=== PATIENT | female | born 1965 | race African-American/Black ===

== ENCOUNTER → 2017-01-15 | Outpatient (CLI) | payer MEDICARE, MEDICAID ==
[~2017-01-15] MED LIST: AMLO5TAB4; ATOR20TA PO; CHOL100053 PO; CLOP75TA16 PO; DEXL60CA3 PO; FOLI1TAB63 PO; MYCO180T PO; PRED5ORA PO; PROG1 PO; PROGRAFT; PROT40 PO; VALS40TA4; ZOLP5TAB2 PO
== END | disposition home or self-care (01) ==
LOC: MAMMO 07:27
PROVIDERS: ATTEND Internal Medicine Nephrology
DX: Z53.21 Procedure and treatment not carried out due to patient leaving prior to being seen by health care provider (principal)

== ENCOUNTER → 2017-01-24 | Outpatient (CLI) | payer MEDICARE, MEDICAID | END | disposition home or self-care (01) | LOC: MAMMO 07:30 | PROVIDERS: ATTEND Internal Medicine Nephrology | DX: Z12.31 Encounter for screening mammogram for malignant neoplasm of breast (principal) | CPT/HCPCS: G0202 ==

== ENCOUNTER → 2017-06-10 | Outpatient (CLI) | payer MEDICARE, MEDICAID | END | disposition home or self-care (01) | LOC: RAD 10:57 | PROVIDERS: ATTEND Internal Medicine Nephrology | DX: Z01.818 Encounter for other preprocedural examination (principal); J98.11 Atelectasis; R60.1 Generalized edema | CPT/HCPCS: 71045; 93970 ==

== ENCOUNTER 2017-09-08 11:52 | Inpatient (IN) | payer MEDICARE, MEDICAID ==
[~2017-09-08] VITALS: Ht 162.6 cm; Wt 63.5 kg
[2017-09-08 15:29] VITALS: BP 143/62
[2017-09-08 16:00] VITALS: BP 143/62
[2017-09-08] MEDS ORDERED: SODIUM CHLORIDE 0.9% 1,000 ML IV SCH (16:30)
[2017-09-08] MEDS ORDERED: LORAZEPAM 2MG/ML CPJ IV PRN (18:00)
[2017-09-08] MEDS ORDERED: CLONIDINE 0.1MG TABLET PO PRN (18:00)
[2017-09-08] MEDS ORDERED: ACETAMINOPHEN 325MG TABLET PO PRN (18:00)
[2017-09-08 18:54] LABS: HEMATOCRIT. 45.7 % (36.0-48.0); HEMOGLOBIN. 14.7 g/dL (12.0-16.0); MEAN CORPUSCULAR HEMOGLOBIN 28.3 pg (28.0-32.0); MEAN CORPUSCULAR VOLUME 87.9 fL (81.0-99.0); MEAN PLATELET VOLUME 8.4 fl (7.4-10.4); PLATELET 180 x1000/uL (130-400); RED CELL DISTRIBUTION WIDTH 16.2 % (11.6-14.6)
[2017-09-08 19:00] LABS: CHLORIDE 107 mEq/L (98-107)
[2017-09-08] MEDS: ONDANSETRON HCL 4MG/2ML VIAL IV PRN (19:02)
[2017-09-08 19:42] LABS: PLATELET ESTIMATE NORMAL
[2017-09-08 20:00] VITALS: BP 132/76
[2017-09-08] MEDS ORDERED: HYDROMORPHONE HCL/PF 2MG/ML CPJ IV PRN (20:00)
[2017-09-08] MEDS: ENOXAPARIN 40MG/0.4ML SYR SUBCUT SCH (22:29)
[2017-09-08] MEDS: SODIUM CHLORIDE 0.9% 1,000 ML IV SCH (22:36)
[2017-09-08] MEDS: TACROLIMUS 1MG CAPSULE PO SCH (22:44)
[2017-09-08] MEDS: MYCOPHENOLATE SODIUM 180 MG TABLET.DR PO SCH (23:25)
[2017-09-09] VITALS: BP 142/63
[2017-09-09] MEDS: METRONIDAZOLE 500 MG PREMIX 100 ML IV SCH ×3 (02:50→17:34)
[2017-09-09] MEDS: LEVOFLOXACIN 500MG PREMIX 100 ML IV SCH (03:17)
[2017-09-09 04:00] VITALS: BP 136/60
[2017-09-09] MEDS: ONDANSETRON HCL 4MG/2ML VIAL IV PRN (06:10)
[2017-09-09] MEDS: PANTOPRAZOLE 40MG DR TABLET PO SCH (07:20)
[2017-09-09 08:00] VITALS: BP 128/63
[2017-09-09] MEDS ORDERED: ENOXAPARIN 40MG/0.4ML SYR SUBCUT SCH (09:00)
[2017-09-09] MEDS ORDERED: PREDNISONE 5 MG PO SCH (09:00)
[2017-09-09] MEDS ORDERED: MYCOPHENOLATE SODIUM 180 MG TABLET.DR PO SCH (09:00)
[2017-09-09] MEDS: CLOPIDOGREL 75MG TABLET PO SCH (09:00)
[2017-09-09] MEDS ORDERED: AMLODIPINE 5MG TABLET PO SCH (09:00)
[2017-09-09] MEDS ORDERED: MEDICATION NOT ON FORMULARY EA (Dexlansoprazole (Dexilant) 1 CAP) PO SCH (09:00)
[2017-09-09] MEDS: PREDNISONE 5MG TABLET PO SCH (09:00)
[2017-09-09] MEDS: TACROLIMUS 1MG CAPSULE PO SCH ×2 (09:05→21:44)
[2017-09-09] MEDS: MYCOPHENOLATE SODIUM 180 MG TABLET.DR PO SCH ×2 (09:05→21:44)
[2017-09-09] MEDS: SODIUM CHLORIDE 0.9% 1,000 ML IV SCH ×2 (09:12→23:05)
[2017-09-09 09:34] LABS: KETONES URINE NEGATIVE (NEGATIVE); LEUKOCYTE ESTERASE URINE 1+ (NEGATIVE); NITRITE URINE NEGATIVE (NEGATIVE); OCCULT BLOOD URINE TRACE (NEGATIVE); PH URINE 5.5 (4.5-8.0); PROTEIN URINE 2+ (NEGATIVE); SPECIFIC GRAVITY URINE 1.039 (1.005-1.030); UROBILINOGEN URINE 0.2 E.U./dL (0.2-1.0)
[2017-09-09 09:40] LABS: COLOR URINE YELLOW (YELLOW)
[2017-09-09 09:41] LABS: CLARITY URINE HAZY (CLEAR)
[2017-09-09 12:00] VITALS: BP 130/69
[2017-09-09 16:15] VITALS: BP 124/45
[2017-09-09 20:00] VITALS: BP 125/67
[2017-09-09] MEDS: ATORVASTATIN CALCIUM 20MG TABLET PO SCH (21:43)
[2017-09-09] MEDS: ZOLPIDEM TARTRATE 5MG TABLET PO SCH (21:44)
[2017-09-09] MEDS: ENOXAPARIN 40MG/0.4ML SYR SUBCUT SCH (21:53)
[2017-09-10] VITALS: BP 122/43
[2017-09-10] MEDS: METRONIDAZOLE 500 MG PREMIX 100 ML IV SCH ×3 (03:32→17:58)
[2017-09-10] MEDS: LEVOFLOXACIN 500MG PREMIX 100 ML IV SCH (03:33)
[2017-09-10 04:00] VITALS: BP 144/66
[2017-09-10] MEDS: PANTOPRAZOLE 40MG DR TABLET PO SCH (07:24)
[2017-09-10 08:00] VITALS: BP 129/52
[2017-09-10 08:11] LABS: CHLORIDE 110 mEq/L (98-107)
[2017-09-10 08:19] LABS: BASOPHILS % 0.1 % (0.0-2.0); EOSINOPHILS % 0.2 % (0.0-5.0); HEMATOCRIT. 40.3 % (36.0-48.0); HEMOGLOBIN. 13.3 g/dL (12.0-16.0); LYMPHOCYTES % 9.4 % (20.0-50.0); MEAN CORPUSCULAR HEMOGLOBIN 28.8 pg (28.0-32.0); MEAN CORPUSCULAR VOLUME 87.4 fL (81.0-99.0); MEAN PLATELET VOLUME 8.7 fl (7.4-10.4); MONOCYTES % 13.6 % (2.0-8.0); NEUTROPHILS % 76.7 % (40.0-76.0); PLATELET 166 x1000/uL (130-400); RED BLOOD CELL COUNT 4.61 mill/uL (4.2-5.4); RED CELL DISTRIBUTION WIDTH 16.3 % (11.6-14.6)
[2017-09-10 08:24] LABS: PHOSPHORUS 3.5 mg/dL (2.5-4.9)
[2017-09-10] MEDS: PREDNISONE 5MG TABLET PO SCH (08:44)
[2017-09-10] MEDS: CLOPIDOGREL 75MG TABLET PO SCH (08:45)
[2017-09-10] MEDS: TACROLIMUS 1MG CAPSULE PO SCH ×2 (08:45→17:58)
[2017-09-10] MEDS: MYCOPHENOLATE SODIUM 180 MG TABLET.DR PO SCH ×2 (08:46→17:58)
[2017-09-10] MEDS ORDERED: CHOLECALCIFEROL (D3) 1000 UNIT TABLET PO SCH (09:00)
[2017-09-10] MEDS: POTASSIUM CHLORIDE 20MEQ TABLET SR PO SCH (09:45)
[2017-09-10 12:00] VITALS: BP 145/54
[2017-09-10] MEDS: ONDANSETRON HCL 4MG/2ML VIAL IV PRN ×2 (12:54→18:06)
[2017-09-10] MEDS: CEFEPIME 1,000 MG in DEXTROSE 5% WATER 50 ML IV SCH ×2 (12:54→22:39)
[2017-09-10] MEDS: SODIUM CHLORIDE 0.9% 1,000 ML IV SCH (12:56)
[2017-09-10 16:00] VITALS: BP 147/58
[2017-09-10 20:00] VITALS: BP 99/58
[2017-09-10] MEDS: ENOXAPARIN 40MG/0.4ML SYR SUBCUT SCH (21:28)
[2017-09-10] MEDS: ATORVASTATIN CALCIUM 20MG TABLET PO SCH (21:28)
[2017-09-10] MEDS: ZOLPIDEM TARTRATE 5MG TABLET PO SCH (21:28)
[2017-09-10] MEDS ORDERED: CHOLECALCIFEROL 10000 UNIT PO SCH (22:30)
[2017-09-11] VITALS: BP 115/58
[2017-09-11] MEDS: LOPERAMIDE HCL 2MG CAPSULE PO PRN ×2 (00:35→11:41)
[2017-09-11] MEDS: DIPHENOXYLATE/ATROPINE 2.5/0.025MG TABLET PO PRN ×3 (01:21→21:38)
[2017-09-11] MEDS: ONDANSETRON HCL 4MG/2ML VIAL IV PRN ×3 (01:21→21:02)
[2017-09-11] MEDS: METRONIDAZOLE 500 MG PREMIX 100 ML IV SCH ×3 (01:29→18:49)
[2017-09-11] MEDS ORDERED: MAGNESIUM 2 G PREMIX 50 ML IV NR (02:00)
[2017-09-11 04:00] VITALS: BP 117/53
[2017-09-11 06:28] LABS: BASOPHILS % 0.2 % (0.0-2.0); EOSINOPHILS % 0.3 % (0.0-5.0); HEMATOCRIT. 39.7 % (36.0-48.0); HEMOGLOBIN. 13.1 g/dL (12.0-16.0); LYMPHOCYTES % 13.7 % (20.0-50.0); MEAN CORPUSCULAR HEMOGLOBIN 28.7 pg (28.0-32.0); MEAN CORPUSCULAR VOLUME 87.1 fL (81.0-99.0); MEAN PLATELET VOLUME 8.6 fl (7.4-10.4); MONOCYTES % 11.2 % (2.0-8.0); NEUTROPHILS % 74.6 % (40.0-76.0); PLATELET 170 x1000/uL (130-400); RED BLOOD CELL COUNT 4.56 mill/uL (4.2-5.4); RED CELL DISTRIBUTION WIDTH 15.8 % (11.6-14.6)
[2017-09-11 06:39] LABS: CHLORIDE 113 mEq/L (98-107)
[2017-09-11 06:45] LABS: PHOSPHORUS 3.1 mg/dL (2.5-4.9)
[2017-09-11] MEDS: MYCOPHENOLATE SODIUM 180 MG TABLET.DR PO SCH ×2 (06:48→18:49)
[2017-09-11] MEDS: TACROLIMUS 1MG CAPSULE PO SCH ×2 (06:48→18:49)
[2017-09-11 07:16] VITALS: BP 119/41
[2017-09-11] MEDS: CLOPIDOGREL 75MG TABLET PO SCH (08:49)
[2017-09-11] MEDS: CEFEPIME 1,000 MG in DEXTROSE 5% WATER 50 ML IV SCH ×2 (08:49→21:50)
[2017-09-11] MEDS: PREDNISONE 20MG TABLET PO SCH (08:50)
[2017-09-11] MEDS: PANTOPRAZOLE 40MG DR TABLET PO SCH (08:50)
[2017-09-11] MEDS: POTASSIUM CHLORIDE 20MEQ TABLET SR PO SCH (08:50)
[2017-09-11] MEDS: SODIUM CHLORIDE 0.9% 1,000 ML IV SCH (10:45)
[2017-09-11 12:00] VITALS: BP 151/73
[2017-09-11] MEDS ORDERED: METOCLOPRAMIDE HCL 10MG TABLET PO SCH (14:00)
[2017-09-11 16:00] VITALS: BP 138/53
[2017-09-11 20:00] VITALS: BP 164/79
[2017-09-11] MEDS: ATORVASTATIN CALCIUM 20MG TABLET PO SCH (21:38)
[2017-09-11] MEDS: LOPERAMIDE HCL 2MG CAPSULE PO SCH (21:38)
[2017-09-11] MEDS: ZOLPIDEM TARTRATE 5MG TABLET PO SCH (21:38)
[2017-09-11] MEDS: ENOXAPARIN 40MG/0.4ML SYR SUBCUT SCH (21:39)
[2017-09-12] VITALS: BP 113/53
[2017-09-12] MEDS: ONDANSETRON HCL 4MG/2ML VIAL IV PRN ×2 (03:18→09:52)
[2017-09-12] MEDS: METRONIDAZOLE 500 MG PREMIX 100 ML IV SCH ×3 (03:25→17:31)
[2017-09-12] MEDS: DIPHENOXYLATE/ATROPINE 2.5/0.025MG TABLET PO PRN (03:25)
[2017-09-12 04:00] VITALS: BP 146/66
[2017-09-12] MEDS: TACROLIMUS 1MG CAPSULE PO SCH ×2 (06:01→17:31)
[2017-09-12] MEDS: MYCOPHENOLATE SODIUM 180 MG TABLET.DR PO SCH ×2 (06:02→17:30)
[2017-09-12] MEDS ORDERED: SODIUM CHLORIDE 0.9% 100 ML IV ONE (07:45)
[2017-09-12 08:00] VITALS: BP 142/67
[2017-09-12] MEDS: PREDNISONE 20MG TABLET PO SCH (09:36)
[2017-09-12] MEDS: PANTOPRAZOLE 40MG DR TABLET PO SCH (09:36)
[2017-09-12] MEDS: CLOPIDOGREL 75MG TABLET PO SCH (09:36)
[2017-09-12] MEDS: LOPERAMIDE HCL 2MG CAPSULE PO SCH ×3 (09:36→17:40)
[2017-09-12] MEDS: POTASSIUM CHLORIDE 20MEQ TABLET SR PO SCH (09:36)
[2017-09-12] MEDS: CEFEPIME 1,000 MG in DEXTROSE 5% WATER 50 ML IV SCH ×2 (09:37→20:32)
[2017-09-12] MEDS: SODIUM CHLORIDE 0.9% 1,000 ML IV SCH (09:38)
[2017-09-12 12:00] VITALS: BP 130/60
[2017-09-12 16:00] VITALS: BP 131/70
[2017-09-12] MEDS: ATORVASTATIN CALCIUM 20MG TABLET PO SCH (20:33)
[2017-09-12] MEDS: ZOLPIDEM TARTRATE 5MG TABLET PO SCH (20:33)
[2017-09-12] MEDS: ENOXAPARIN 40MG/0.4ML SYR SUBCUT SCH (20:33)
[2017-09-12 20:50] VITALS: BP 119/56
[2017-09-13] VITALS: BP 140/52
[2017-09-13] MEDS: LOPERAMIDE HCL 2MG CAPSULE PO SCH ×3 (00:03→12:19)
[2017-09-13] MEDS: METRONIDAZOLE 500 MG PREMIX 100 ML IV SCH ×2 (01:37→10:20)
[2017-09-13 04:00] VITALS: BP 152/63
[2017-09-13] MEDS: MYCOPHENOLATE SODIUM 180 MG TABLET.DR PO SCH (06:37)
[2017-09-13] MEDS: TACROLIMUS 1MG CAPSULE PO SCH (06:37)
[2017-09-13 07:07] LABS: CHLORIDE 112 mEq/L (98-107)
[2017-09-13 07:10] LABS: BASOPHILS % 0.3 % (0.0-2.0); EOSINOPHILS % 0.3 % (0.0-5.0); HEMATOCRIT. 37.5 % (36.0-48.0); HEMOGLOBIN. 12.5 g/dL (12.0-16.0); LYMPHOCYTES % 15.3 % (20.0-50.0); MEAN CORPUSCULAR HEMOGLOBIN 28.6 pg (28.0-32.0); MEAN CORPUSCULAR VOLUME 86.1 fL (81.0-99.0); MEAN PLATELET VOLUME 8.3 fl (7.4-10.4); MONOCYTES % 8.5 % (2.0-8.0); NEUTROPHILS % 75.6 % (40.0-76.0); PLATELET 168 x1000/uL (130-400); RED BLOOD CELL COUNT 4.36 mill/uL (4.2-5.4); RED CELL DISTRIBUTION WIDTH 15.8 % (11.6-14.6)
[2017-09-13 08:00] VITALS: BP 152/67
[2017-09-13] MEDS: POTASSIUM CHLORIDE 20MEQ TABLET SR PO SCH (09:00)
[2017-09-13] MEDS: CEFEPIME 1,000 MG in DEXTROSE 5% WATER 50 ML IV SCH (09:10)
[2017-09-13] MEDS: PREDNISONE 20MG TABLET PO SCH (09:11)
[2017-09-13] MEDS: CLOPIDOGREL 75MG TABLET PO SCH (09:11)
[2017-09-13] MEDS: PANTOPRAZOLE 40MG DR TABLET PO SCH (09:11)
[2017-09-13] MEDS: SODIUM CHLORIDE 0.9% 1,000 ML IV SCH ×2 (09:11→12:19)
[2017-09-13 12:00] VITALS: BP_SYST 127; BP_SYST 133; BP_DIAS 65; BP_DIAS 69
[2017-09-13] MEDS ORDERED: MAGNESIUM 2 G PREMIX 50 ML IV NR (12:30)
[2017-09-13 14:52] VITALS: BP 133/65
== END 2017-09-13 16:00 | disposition home or self-care (01) | DRG 871 ==
LOC: 6EST 11:52
PROVIDERS: ADMIT Internal Medicine Nephrology; ATTEND Internal Medicine Nephrology
DX: A41.9 Sepsis, unspecified organism (principal); N18.6 End stage renal disease; E43 Unspecified severe protein-calorie malnutrition; I12.0 Hypertensive chronic kidney disease with stage 5 chronic kidney disease or end stage renal disease; M32.9 Systemic lupus erythematosus, unspecified; E83.42 Hypomagnesemia; N39.0 Urinary tract infection, site not specified; Z94.0 Kidney transplant status; K52.9 Noninfective gastroenteritis and colitis, unspecified; E86.0 Dehydration; E78.00 Pure hypercholesterolemia, unspecified; E87.6 Hypokalemia; Z79.899 Other long term (current) drug therapy; Z86.711 Personal history of pulmonary embolism; Z90.710 Acquired absence of both cervix and uterus; Z88.0 Allergy status to penicillin; Z68.24 Body mass index [BMI] 24.0-24.9, adult
CPT/HCPCS: 36415; 74176; 80048; 80053; 80197; 81003; 82270; 83735; 84100; 84145; 85025; 86645; 87045; 87252; 87449; 87493; 87496; 89055; 93306; 97162; C1893; J0692; J1170; J1650; J1956; J2060; J2405; J3475; J3490; J7030; J7060; J7507; J7512; J7517; A4315

== ENCOUNTER 2017-11-28 07:57 | Emergency (ER) | payer MEDICARE, MEDICAID ==
[~2017-11-28] VITALS: Ht 162.6 cm; Wt 65.0 kg
[2017-11-28] MEDS ORDERED: ONDANSETRON 4MG ODT PO STA (10:30)
[2017-11-28 10:50] LABS: BASOPHILS % 0.2 % (0.0-2.0); EOSINOPHILS % 0.4 % (0.0-5.0); HEMATOCRIT. 40.9 % (36.0-48.0); HEMOGLOBIN. 13.4 g/dL (12.0-16.0); LYMPHOCYTES % 9.8 % (20.0-50.0); MEAN CORPUSCULAR HEMOGLOBIN 28.1 pg (28.0-32.0); MEAN CORPUSCULAR VOLUME 86.2 fL (81.0-99.0); MEAN PLATELET VOLUME 8.3 fl (7.4-10.4); MONOCYTES % 7.5 % (2.0-8.0); NEUTROPHILS % 82.1 % (40.0-76.0); PLATELET 160 x1000/uL (130-400); RED BLOOD CELL COUNT 4.75 mill/uL (4.2-5.4); RED CELL DISTRIBUTION WIDTH 16.1 % (11.6-14.6)
[2017-11-28 10:57] LABS: CHLORIDE 109 mEq/L (98-107)
[2017-11-28 14:30] VITALS: BP 144/55
== END 2017-11-28 14:38 | disposition home or self-care (01) ==
LOC: ER 08:54
DX: M25.512 Pain in left shoulder (principal); R20.2 Paresthesia of skin; R11.0 Nausea; F12.10 Cannabis abuse, uncomplicated; I10 Essential (primary) hypertension; Z88.0 Allergy status to penicillin; Z88.5 Allergy status to narcotic agent; Z79.899 Other long term (current) drug therapy; Z94.0 Kidney transplant status
CPT/HCPCS: 36415; 80048; 85025; 93005; 93880; 99285; Q0162

== ENCOUNTER → 2018-04-01 | Outpatient (CLI) | payer MEDICARE, MEDICAID | END | disposition home or self-care (01) | LOC: US 07:36 | PROVIDERS: ATTEND Internal Medicine Nephrology | DX: R10.2 Pelvic and perineal pain (principal); Z94.0 Kidney transplant status | CPT/HCPCS: 76856 ==

== ENCOUNTER → 2018-04-14 | Outpatient (CLI) | payer MEDICARE, MEDICAID ==
[~2018-04-14] MED LIST changes: +IOHEXOL-300 100 ML BOTTLE ONE
== END | disposition home or self-care (01) ==
LOC: CT 07:35
PROVIDERS: ATTEND Internal Medicine Nephrology
DX: K57.90 Diverticulosis of intestine, part unspecified, without perforation or abscess without bleeding (principal); M16.11 Unilateral primary osteoarthritis, right hip; M87.851 Other osteonecrosis, right femur; Z96.651 Presence of right artificial knee joint
CPT/HCPCS: 73552; 74178; Q9967

== ENCOUNTER → 2018-06-11 | Outpatient (CLI) | payer MEDICARE, MEDICAID ==
[~2018-06-11] MED LIST changes: -IOHEXOL-300 100 ML BOTTLE ONE
== END | disposition home or self-care (01) ==
LOC: RAD 10:17
PROVIDERS: ATTEND Orthopaedic Surgery
DX: M19.012 Primary osteoarthritis, left shoulder (principal)
CPT/HCPCS: 73030

== ENCOUNTER 2019-05-03 10:11 | Inpatient (IN) | payer MEDICARE, MEDICAID ==
[~2019-05-03] VITALS: Ht 165.1 cm; Wt 63.6 kg
[~2019-05-03 10:11] MED LIST changes: -AMLO5TAB4; +AMLO5TAB4 PO; -CLOP75TA16 PO; +CLOP75TA4 PO
[2019-05-03] MEDS ORDERED: ONDANSETRON 4MG ODT PO STA (15:18)
[2019-05-03 16:30] LABS: HEMATOCRIT. 43.7 % (36.0-48.0); HEMOGLOBIN. 14.2 g/dL (12.0-16.0); MEAN CORPUSCULAR HEMOGLOBIN 28.6 pg (28.0-32.0); MEAN CORPUSCULAR VOLUME 87.8 fL (81.0-99.0); MEAN PLATELET VOLUME 8.4 fl (7.4-10.4); PLATELET 153 x1000/uL (130-400); RED BLOOD CELL COUNT 4.97 mill/uL (4.2-5.4); RED CELL DISTRIBUTION WIDTH 15.4 % (11.6-14.6)
[2019-05-03 16:35] LABS: PROTHROMBIN TIME 10.3 sec (9.6-11.0)
[2019-05-03 16:36] LABS: CHLORIDE 108 mEq/L (98-107)
[2019-05-03 19:20] LABS: ATYPICAL LYMPHOCYTES 2; PLATELET ESTIMATE NORMAL
[2019-05-03] MEDS ORDERED: SODIUM CHLORIDE 0.9% 1,000 ML IV ONE (22:30)
[2019-05-04] MEDS ORDERED: CEFEPIME 1,000 MG in DEXTROSE 5% WATER 50 ML IV NR ×2
[2019-05-04] MEDS ORDERED: VANCOMYCIN 1 G PREMIX 200 ML IV NR
[2019-05-04] MEDS ORDERED: SODIUM CHLORIDE 0.9% 1000ML BAG (SEPSIS BOLUS) IV NR
[2019-05-04 04:07] VITALS: BP 143/68
[2019-05-04 04:30] VITALS: BP 143/68
[2019-05-04] MEDS ORDERED: ONDANSETRON HCL 4MG/2ML INJ IV PRN (05:15)
[2019-05-04] MEDS ORDERED: FISH MT (05:56)
[2019-05-04] MEDS ORDERED: FOLI1TAB63 MT (05:56)
[2019-05-04] MEDS: PANTOPRAZOLE 40MG DR TABLET PO SCH (06:20)
[2019-05-04 07:27] LABS: BASOPHILS % 0.3 % (0.0-2.0); EOSINOPHILS % 0.4 % (0.0-5.0); HEMATOCRIT. 40.7 % (36.0-48.0); HEMOGLOBIN. 13.3 g/dL (12.0-16.0); LYMPHOCYTES % 11.9 % (20.0-50.0); MEAN CORPUSCULAR HEMOGLOBIN 29.1 pg (28.0-32.0); MEAN CORPUSCULAR VOLUME 88.6 fL (81.0-99.0); MEAN PLATELET VOLUME 8.6 fl (7.4-10.4); MONOCYTES % 12.1 % (2.0-8.0); NEUTROPHILS % 75.3 % (40.0-76.0); PLATELET 144 x1000/uL (130-400); RED BLOOD CELL COUNT 4.59 mill/uL (4.2-5.4); RED CELL DISTRIBUTION WIDTH 15.3 % (11.6-14.6)
[2019-05-04 07:29] LABS: CHLORIDE 112 mEq/L (98-107)
[2019-05-04 08:00] VITALS: BP 123/61
[2019-05-04] MEDS ORDERED: TACROLIMUS 1MG CAPSULE PO SCH ×3 (09:00→21:20)
[2019-05-04] MEDS ORDERED: CEFEPIME 1,000 MG in DEXTROSE 5% WATER 50 ML IV SCH (09:00)
[2019-05-04] MEDS ORDERED: MYCOPHENOLATE SODIUM 180 MG TABLET.DR PO SCH (09:00)
[2019-05-04] MEDS: CLOPIDOGREL 75MG TABLET PO SCH (09:19)
[2019-05-04] MEDS: FOLIC ACID/VITAMIN B COMP W-C TABLET PO SCH (09:19)
[2019-05-04] MEDS: PREDNISONE 5MG TABLET PO SCH (09:19)
[2019-05-04] MEDS: VANCOMYCIN 750 MG PREMIX 150 ML IV SCH ×3 (09:19→22:36)
[2019-05-04] MEDS: AMLODIPINE 5MG TABLET PO SCH ×2 (09:19→21:28)
[2019-05-04] MEDS ORDERED: TACR1CAP MT (10:45)
[2019-05-04] MEDS: CEFEPIME 1,000 MG in DEXTROSE 5% WATER 50 ML IV SCH ×2 (11:18→23:58)
[2019-05-04] MEDS: ACETAMINOPHEN 325MG TABLET PO PRN (11:27)
[2019-05-04 12:00] VITALS: BP 142/78
[2019-05-04] MEDS: SODIUM CHLORIDE 0.9% 1,000 ML IV SCH (12:29)
[2019-05-04] MEDS: TACROLIMUS 1MG CAPSULE PO SCH (14:11)
[2019-05-04] MEDS: MYCOPHENOLATE SODIUM 180 MG TABLET.DR PO SCH ×2 (14:48→21:29)
[2019-05-04] MEDS ORDERED: IOHEXOL-300 100 ML BOTTLE ONE (14:51)
[2019-05-04 16:00] VITALS: BP 131/64
[2019-05-04 20:00] VITALS: BP 127/66
[2019-05-04] MEDS ORDERED: ATORVASTATIN CALCIUM 20MG TABLET PO SCH (21:00)
[2019-05-04] MEDS ORDERED: LACTULOSE 20G/30ML UDC PO NR (21:00)
[2019-05-05] VITALS: BP 151/76
[2019-05-05] MEDS: ACETAMINOPHEN 325MG TABLET PO PRN (00:46)
[2019-05-05] MEDS: SODIUM CHLORIDE 0.9% 1,000 ML IV SCH ×2 (00:47→12:19)
[2019-05-05 04:00] VITALS: BP 125/68
[2019-05-05 06:52] LABS: CHLORIDE 112 mEq/L (98-107)
[2019-05-05 07:01] LABS: VANCOMYCIN TROUGH 17.9 ug/mL (5.0-10.0)
[2019-05-05] MEDS: PANTOPRAZOLE 40MG DR TABLET PO SCH (07:11)
[2019-05-05 08:00] VITALS: BP 140/62
[2019-05-05] MEDS: VANCOMYCIN 750 MG PREMIX 150 ML IV SCH (08:14)
[2019-05-05] MEDS: DOCUSATE SODIUM 100MG CAPSULE PO SCH ×2 (09:22→17:00)
[2019-05-05] MEDS: TACROLIMUS 1MG CAPSULE PO SCH (09:22)
[2019-05-05] MEDS: PREDNISONE 5MG TABLET PO SCH (09:22)
[2019-05-05] MEDS: FOLIC ACID/VITAMIN B COMP W-C TABLET PO SCH (09:22)
[2019-05-05] MEDS: CLOPIDOGREL 75MG TABLET PO SCH (09:22)
[2019-05-05] MEDS: MYCOPHENOLATE SODIUM 180 MG TABLET.DR PO SCH (09:22)
[2019-05-05] MEDS: AMLODIPINE 5MG TABLET PO SCH (09:23)
[2019-05-05 12:00] VITALS: BP 151/68
[2019-05-05] MEDS: CEFEPIME 1,000 MG in DEXTROSE 5% WATER 50 ML IV SCH (12:19)
[2019-05-05] MEDS ORDERED: CIPR-263 MT (13:24)
[2019-05-05] MEDS ORDERED: METR500T MT (13:24)
[2019-05-05] MEDS ORDERED: VANCOMYCIN 1 G PREMIX 200 ML IV SCH (14:00)
[2019-05-05 15:45] VITALS: BP 145/64
[2019-05-05 16:40] VITALS: BP 136/64
== END 2019-05-05 17:30 | disposition home or self-care (01) | DRG 871 ==
LOC: ER 11:11 → 6WST 23:16 → EDBEDREQ 23:25 → EDBEDREQSVC 23:25 → EDBEDREQTM 23:25 → ENRESERV 05-04 03:17
PROVIDERS: ADMIT Specialist; ATTEND Specialist
DX: A41.9 Sepsis, unspecified organism (principal); N18.6 End stage renal disease; I13.11 Hypertensive heart and chronic kidney disease without heart failure, with stage 5 chronic kidney disease, or end stage renal disease; K57.32 Diverticulitis of large intestine without perforation or abscess without bleeding; Z94.0 Kidney transplant status; J44.9 Chronic obstructive pulmonary disease, unspecified; M32.9 Systemic lupus erythematosus, unspecified; A08.4 Viral intestinal infection, unspecified; Z79.02 Long term (current) use of antithrombotics/antiplatelets; Z79.899 Other long term (current) drug therapy; Z88.0 Allergy status to penicillin; Z88.6 Allergy status to analgesic agent
CPT/HCPCS: 36415; 71045; 74178; 80048; 80053; 80202; 83605; 85025; 87804; 99285; C1893; J0692; J3370; J7030; J7060; J7507; J7512; J7517; Q0162; Q9967

== ENCOUNTER → 2020-01-26 | Outpatient (CLI) | payer MEDICARE, MEDICAID ==
[~2020-01-26] MED LIST changes: +CIPR-263 MT; +FISH MT; +FOLI1TAB63 MT; +METR500T MT; +TACR1CAP MT
== END | disposition home or self-care (01) ==
LOC: CARD 10:46
PROVIDERS: ATTEND Internal Medicine Nephrology
DX: R07.9 Chest pain, unspecified (principal); I51.7 Cardiomegaly
CPT/HCPCS: 71045; 93005

== ENCOUNTER 2020-02-14 07:52 | Emergency (ER) | payer MEDICARE, MEDICAID ==
[~2020-02-14] VITALS: Ht 165.1 cm; Wt 64.0 kg
[2020-02-14 09:04] LABS: BASOPHILS % 0.3 % (0.0-2.0); HEMATOCRIT. 35.5 % (36.0-48.0); HEMOGLOBIN. 11.5 g/dL (12.0-16.0); LYMPHOCYTES % 12.8 % (20.0-50.0); MEAN CORPUSCULAR HEMOGLOBIN 28.3 pg (28.0-32.0); NEUTROPHILS % 76.9 % (40.0-76.0); PLATELET 234 x1000/uL (130-400); RED BLOOD CELL COUNT 4.07 mill/uL (4.2-5.4); RED CELL DISTRIBUTION WIDTH 15.9 % (11.6-14.6)
[2020-02-14 09:08] LABS: CHLORIDE 111 mEq/L (98-107)
[2020-02-14 09:14] LABS: PROTHROMBIN TIME 10.9 sec (9.6-11.0)
[2020-02-14 10:41] LABS: CLARITY URINE CLEAR (CLEAR); COLOR URINE YELLOW (YELLOW); KETONES URINE NEGATIVE (NEGATIVE); LEUKOCYTE ESTERASE URINE 1+ (NEGATIVE); NITRITE URINE NEGATIVE (NEGATIVE); OCCULT BLOOD URINE NEGATIVE (NEGATIVE); PROTEIN URINE TRACE (NEGATIVE); SPECIFIC GRAVITY URINE 1.022 (1.005-1.030); UROBILINOGEN URINE 0.2 E.U./dL (0.2-1.0)
[2020-02-14 11:34] VITALS: BP 141/60
== END 2020-02-14 11:43 | disposition home or self-care (01) ==
LOC: ER 07:52
DX: G89.18 Other acute postprocedural pain (principal); N39.0 Urinary tract infection, site not specified; M32.9 Systemic lupus erythematosus, unspecified; I12.9 Hypertensive chronic kidney disease with stage 1 through stage 4 chronic kidney disease, or unspecified chronic kidney disease; N18.9 Chronic kidney disease, unspecified; Z90.49 Acquired absence of other specified parts of digestive tract; Z94.0 Kidney transplant status; Z88.5 Allergy status to narcotic agent; Z88.0 Allergy status to penicillin
CPT/HCPCS: 36415; 74176; 80053; 81003; 85025; 93005; 99285

== ENCOUNTER → 2020-03-01 | Outpatient (CLI) | payer MEDICARE, MEDICAID ==
[2020-03-01 14:16] LABS: BASOPHILS % 0.4 % (0.0-2.0); EOSINOPHILS % 0.3 % (0.0-5.0); HEMATOCRIT. 38.7 % (36.0-48.0); HEMOGLOBIN. 12.5 g/dL (12.0-16.0); LYMPHOCYTES % 8.4 % (20.0-50.0); MEAN CORPUSCULAR HEMOGLOBIN 27.5 pg (28.0-32.0); MEAN CORPUSCULAR VOLUME 85.5 fL (81.0-99.0); MEAN PLATELET VOLUME 7.7 fl (7.4-10.4); MONOCYTES % 5.1 % (2.0-8.0); NEUTROPHILS % 85.8 % (40.0-76.0); PLATELET 268 x1000/uL (130-400); RED BLOOD CELL COUNT 4.53 mill/uL (4.2-5.4); RED CELL DISTRIBUTION WIDTH 15.6 % (11.6-14.6)
[2020-03-01 14:57] LABS: CHLORIDE 107 mEq/L (98-107)
== END | disposition home or self-care (01) ==
LOC: LAB 13:39
PROVIDERS: ATTEND Internal Medicine Nephrology
DX: Z01.812 Encounter for preprocedural laboratory examination (principal); I49.8 Other specified cardiac arrhythmias
CPT/HCPCS: 36415; 80048; 85025; 93005

== ENCOUNTER → 2020-03-02 | Outpatient (CLI) | payer MEDICARE, MEDICAID | END | disposition home or self-care (01) | LOC: RAD 09:46 | PROVIDERS: ATTEND Internal Medicine Nephrology | DX: Z01.818 Encounter for other preprocedural examination (principal); M19.012 Primary osteoarthritis, left shoulder; M19.011 Primary osteoarthritis, right shoulder | CPT/HCPCS: 71045 ==

== ENCOUNTER 2020-03-18 15:58 | Emergency (ER) | payer MEDICARE, MEDICAID ==
[~2020-03-18] VITALS: Ht 162.6 cm; Wt 56.0 kg
[2020-03-18] MEDS ORDERED: ONDANSETRON HCL 4MG/2ML INJ IV ONE (16:30)
[2020-03-18 17:24] LABS: BASOPHILS % 0.6 % (0.0-2.0); EOSINOPHILS % 0.4 % (0.0-5.0); HEMATOCRIT. 39.4 % (36.0-48.0); HEMOGLOBIN. 12.7 g/dL (12.0-16.0); LYMPHOCYTES % 8.4 % (20.0-50.0); MEAN CORPUSCULAR HEMOGLOBIN 27.6 pg (28.0-32.0); MEAN CORPUSCULAR VOLUME 85.8 fL (81.0-99.0); MEAN PLATELET VOLUME 7.4 fl (7.4-10.4); NEUTROPHILS % 83.6 % (40.0-76.0); PLATELET 204 x1000/uL (130-400); RED BLOOD CELL COUNT 4.59 mill/uL (4.2-5.4); RED CELL DISTRIBUTION WIDTH 16.6 % (11.6-14.6)
[2020-03-18 17:31] LABS: CLARITY URINE CLOUDY (CLEAR); COLOR URINE YELLOW (YELLOW); KETONES URINE NEGATIVE (NEGATIVE); LEUKOCYTE ESTERASE URINE 1+ (NEGATIVE); NITRITE URINE NEGATIVE (NEGATIVE); OCCULT BLOOD URINE NEGATIVE (NEGATIVE); PH URINE 5.5 (4.5-8.0); PROTEIN URINE 1+ (NEGATIVE); SPECIFIC GRAVITY URINE 1.016 (1.005-1.030); UROBILINOGEN URINE 0.2 E.U./dL (0.2-1.0)
[2020-03-18 17:33] LABS: PROTHROMBIN TIME 10.6 sec (9.6-11.0)
[2020-03-18 17:49] LABS: CHLORIDE 107 mEq/L (98-107)
[2020-03-18] MEDS ORDERED: CEFTRIAXONE 1 G PREMIX 50 ML IV ONE (18:15)
[2020-03-18] MEDS ORDERED: SODIUM CHLORIDE 0.9% 500 ML IV ONE (18:30)
[2020-03-18 19:17] VITALS: BP 140/72
== END 2020-03-18 19:19 | disposition home or self-care (01) ==
LOC: ER 15:58
DX: N12 Tubulo-interstitial nephritis, not specified as acute or chronic (principal); M32.9 Systemic lupus erythematosus, unspecified; I12.9 Hypertensive chronic kidney disease with stage 1 through stage 4 chronic kidney disease, or unspecified chronic kidney disease; N18.9 Chronic kidney disease, unspecified; Z88.0 Allergy status to penicillin; Z88.6 Allergy status to analgesic agent; Z94.0 Kidney transplant status; Z90.49 Acquired absence of other specified parts of digestive tract; Z98.890 Other specified postprocedural states
CPT/HCPCS: 36415; 80053; 81003; 83605; 83690; 84484; 85025; 85610; 86850; 86900; 86901; 87426; 93005; 96365; 96375; 99284; J0696; J2405; J7040

== ENCOUNTER 2020-06-07 11:12 | Emergency (ER) | payer MEDICARE, MEDICAID ==
[~2020-06-07] VITALS: Ht 165.1 cm; Wt 60.0 kg
[~2020-06-07 11:12] MED LIST changes: +CLOP-31 PO; -CLOP75TA4 PO; -PROG1 PO; +TACR1CAP2 PO
[2020-06-07 11:29] VITALS: BP 137/66
[2020-06-07] MEDS ORDERED: ACETAMINOPHEN 325MG TABLET PO ONE (12:15)
[2020-06-07 12:21] LABS: BASOPHILS % 0.6 % (0.0-2.0); EOSINOPHILS % 0.3 % (0.0-5.0); HEMATOCRIT. 36.7 % (36.0-48.0); HEMOGLOBIN. 12.2 g/dL (12.0-16.0); LYMPHOCYTES % 8.8 % (20.0-50.0); MEAN CORPUSCULAR HEMOGLOBIN 28.6 pg (28.0-32.0); MEAN CORPUSCULAR VOLUME 86.5 fL (81.0-99.0); MEAN PLATELET VOLUME 8.1 fl (7.4-10.4); MONOCYTES % 4.6 % (2.0-8.0); NEUTROPHILS % 85.7 % (40.0-76.0); PLATELET 194 x1000/uL (130-400); RED BLOOD CELL COUNT 4.24 mill/uL (4.2-5.4); RED CELL DISTRIBUTION WIDTH 16.7 % (11.6-14.6)
[2020-06-07 12:38] LABS: PROTHROMBIN TIME 10.4 sec (9.6-11.0)
== END 2020-06-07 13:14 | disposition home or self-care (01) ==
LOC: ER 11:39
DX: M25.562 Pain in left knee (principal); M32.9 Systemic lupus erythematosus, unspecified; F12.10 Cannabis abuse, uncomplicated; Z90.49 Acquired absence of other specified parts of digestive tract; Z86.718 Personal history of other venous thrombosis and embolism; Z79.01 Long term (current) use of anticoagulants; Z94.0 Kidney transplant status; Z88.0 Allergy status to penicillin; Z88.5 Allergy status to narcotic agent
CPT/HCPCS: 36415; 85025; 93971; 99284

== ENCOUNTER 2020-11-05 06:12 | Emergency (ER) | payer MEDICARE, MEDICAID ==
[~2020-11-05] VITALS: Ht 152.4 cm; Wt 68.0 kg
[2020-11-05 07:47] LABS: CHLORIDE 114 mEq/L (98-107)
[2020-11-05 08:02] LABS: BASOPHILS % 0.4 % (0.0-2.0); EOSINOPHILS % 1.6 % (0.0-5.0); HEMATOCRIT. 36.4 % (36.0-48.0); HEMOGLOBIN. 11.8 g/dL (12.0-16.0); LYMPHOCYTES % 21.5 % (20.0-50.0); MEAN CORPUSCULAR HEMOGLOBIN 28.1 pg (28.0-32.0); MEAN PLATELET VOLUME 8.3 fl (7.4-10.4); MONOCYTES % 9.7 % (2.0-8.0); NEUTROPHILS % 66.8 % (40.0-76.0); PLATELET 173 x1000/uL (130-400); RED BLOOD CELL COUNT 4.18 mill/uL (4.2-5.4); RED CELL DISTRIBUTION WIDTH 16.5 % (11.6-14.6)
[2020-11-05 10:46] VITALS: BP 143/60
== END 2020-11-05 11:13 | disposition home or self-care (01) ==
LOC: ER 06:12
DX: R60.0 Localized edema (principal); F12.10 Cannabis abuse, uncomplicated; Z90.49 Acquired absence of other specified parts of digestive tract; Z79.899 Other long term (current) drug therapy; Z88.0 Allergy status to penicillin; Z88.5 Allergy status to narcotic agent
CPT/HCPCS: 36415; 80048; 85025; 93005; 93970; 99285

== ENCOUNTER → 2022-09-02 | Outpatient (CLI) | payer MEDICARE, MEDICAID | END | disposition home or self-care (01) | LOC: RAD 11:17 | PROVIDERS: ATTEND Internal Medicine Nephrology | DX: M25.562 Pain in left knee (principal); N25.0 Renal osteodystrophy | CPT/HCPCS: 73562 ==

== ENCOUNTER 2022-09-06 04:05 | Emergency (ER) | payer MEDICARE, MEDICAID ==
[2022-09-06] MEDS ORDERED: ACETAMINOPHEN 325MG TABLET PO ONE (08:45)
[2022-09-06 09:09] VITALS: BP 159/76
== END 2022-09-06 09:16 | disposition home or self-care (01) ==
LOC: ER 04:05
DX: M25.562 Pain in left knee (principal); Z88.0 Allergy status to penicillin; Z88.5 Allergy status to narcotic agent; Z79.899 Other long term (current) drug therapy; Z90.49 Acquired absence of other specified parts of digestive tract; Z98.890 Other specified postprocedural states
CPT/HCPCS: 73562; 93970; 99284

== ENCOUNTER 2023-11-02 00:58 | Emergency (ER) | payer MEDICARE, MEDICAID ==
[~2023-11-02] VITALS: Ht 162.6 cm; Wt 68.0 kg
[2023-11-02 01:07] VITALS: O2SAT 99
[2023-11-02 01:10] VITALS: BP 158/69; PULSE 74; RESP 16; TEMP 98.3
[2023-11-02] MEDS: SODIUM CHLORIDE 0.9% 1,000 ML IV ONE (03:45)
[2023-11-02 03:46] LABS: CHLORIDE 109 mEq/L (98-107); POTASSIUM 3.6 mEq/L (3.5-5.1); SODIUM 142 mEq/L (136-145)
[2023-11-02 03:47] LABS: CARBON DIOXIDE 25 mEq/L (21-32)
[2023-11-02 03:48] LABS: CALCIUM 9.2 mg/dL (8.7-10.4)
[2023-11-02 03:51] LABS: BASOPHILS % 0.4 % (0.0-2.0); EOSINOPHILS % 0.8 % (0.0-5.0); HEMATOCRIT. 37.9 % (36.0-48.0); HEMOGLOBIN. 12.1 g/dL (12.0-16.0); MEAN CORPUSCULAR HEMOGLOBIN 27.8 pg (28.0-32.0); MEAN CORPUSCULAR HGB CONC 31.8 g/dL (31.0-37.0); MEAN CORPUSCULAR VOLUME 87.5 fL (81.0-99.0); MEAN PLATELET VOLUME 8.1 fl (7.4-10.4); MONOCYTES % 10.2 % (2.0-8.0); NEUTROPHILS % 73.6 % (40.0-76.0); PLATELET 189 x1000/uL (130-400); RED BLOOD CELL COUNT 4.33 mill/uL (4.2-5.4); RED CELL DISTRIBUTION WIDTH 16.4 % (11.6-14.6); WHITE BLOOD COUNT 15.2 x1000/uL (4.5-11.0)
[2023-11-02 03:52] LABS: CREATININE 0.5 mg/dL (0.6-1.0); GLUCOSE 106 mg/dL (70-105)
[2023-11-02 03:53] LABS: UREA NITROGEN BLOOD 15 mg/dL (9-23)
[2023-11-02 03:54] LABS: ALANINE AMINOTRANSFERASE 12 IU/L (10-49); ALBUMIN 4.3 g/dL (3.2-4.8); ASPARTATE AMINOTRANSFERASE 13 IU/L (<34)
[2023-11-02 03:55] LABS: BILIRUBIN TOTAL 0.7 mg/dL (0.1-1.0); PROTEIN TOTAL 6.8 g/dL (6.0-8.3)
[2023-11-02] MEDS: ONDANSETRON 4MG ODT PO ONE (04:09)
[2023-11-02] MEDS: MAGNESIUM/ALUMINUM HYDROXIDE/SIMETHICONE 30ML UDC PO ONE (04:09)
[2023-11-02] MEDS ORDERED: METR375C2 MT (05:22)
[2023-11-02] MEDS ORDERED: HYDR-4001 MT (05:22)
[2023-11-02] MEDS ORDERED: IOHEXOL-300 100 ML BOTTLE ONE (05:58)
== END 2023-11-02 05:40 | disposition home or self-care (01) ==
LOC: ER 00:58
DX: K57.92 Diverticulitis of intestine, part unspecified, without perforation or abscess without bleeding (principal); F12.90 Cannabis use, unspecified, uncomplicated; Z94.0 Kidney transplant status; Z98.890 Other specified postprocedural states; Z90.49 Acquired absence of other specified parts of digestive tract; Z88.0 Allergy status to penicillin; Z88.5 Allergy status to narcotic agent
CPT/HCPCS: 99285; 74177; 96360; 71045; 80053; 83880; 83605; 83690; 85025; 36415; 93005; Q9967; Q0162; J7030

== ENCOUNTER 2025-01-26 05:19 | Emergency (ER) | payer MEDICARE, MEDICAID ==
[~2025-01-26] VITALS: Ht 165.1 cm; Wt 68.2 kg
[~2025-01-26 05:19] MED LIST changes: -AMLO5TAB4 PO; -ATOR20TA PO; +AZIT250T12 MT; -CHOL100053 PO; -CIPR-263 MT; +CLON0.1T PO; -CLOP-31 PO; +CLOP75TA33 PO; -DEXL60CA3 PO; +ERGO1250 PO; +ESTR42.510 VG; -FISH MT; -FOLI1TAB63 MT; -FOLI1TAB63 PO; +FURO20TA4 PO; -METR500T MT; -MYCO180T PO; +MYCO180T3 PO; +NIFE90TA69 PO; +OMEP40CA20 PO; -PRED5ORA PO; +PRED5TAB PO; -PROGRAFT; -PROT40 PO; +TACR0.5C4 PO; -TACR1CAP MT; +TACR1CAP PO; -TACR1CAP2 PO; +VALS320T16 PO; -VALS40TA4; -ZOLP5TAB2 PO
[2025-01-26 05:28] VITALS: O2SAT 99
[2025-01-26] MEDS ORDERED: P20 MT (05:37)
[2025-01-26] MEDS ORDERED: DIPH25CA83 MT (05:37)
[2025-01-26 05:50] VITALS: BP 133/66; PULSE 77; RESP 18; TEMP 36.9; O2SAT 99
== END 2025-01-26 06:59 | disposition home or self-care (01) ==
LOC: ER 06:05
DX: R21 Rash and other nonspecific skin eruption (principal); L29.9 Pruritus, unspecified; I10 Essential (primary) hypertension; Z79.02 Long term (current) use of antithrombotics/antiplatelets; Z79.52 Long term (current) use of systemic steroids; Z79.621 Long term (current) use of calcineurin inhibitor; Z79.624 Long term (current) use of inhibitors of nucleotide synthesis; Z79.899 Other long term (current) drug therapy; Z88.0 Allergy status to penicillin; Z88.1 Allergy status to other antibiotic agents; Z88.5 Allergy status to narcotic agent; Z90.49 Acquired absence of other specified parts of digestive tract; Z94.0 Kidney transplant status; Z96.649 Presence of unspecified artificial hip joint; Z96.659 Presence of unspecified artificial knee joint
CPT/HCPCS: 99283